=== PATIENT | male | born 1985 | race Two or more races ===

== ENCOUNTER 2019-09-08 10:01 | Emergency (ER) | payer SELFPAY ==
[~2019-09-08] VITALS: Ht 167.6 cm; Wt 72.6 kg
[2019-09-08 10:22] VITALS: BP 153/90
== END 2019-09-08 15:01 | disposition home or self-care (01) ==
LOC: EDBD 10:01 → ER 10:01
DX: S01.112A Laceration without foreign body of left eyelid and periocular area, initial encounter (principal); M79.642 Pain in left hand; Y04.0XXA Assault by unarmed brawl or fight, initial encounter; Y93.89 Activity, other specified; Y92.89 Other specified places as the place of occurrence of the external cause; Y99.8 Other external cause status
CPT/HCPCS: 70486; 73130